=== PATIENT | male | born 1960 | race Caucasian/White ===

== ENCOUNTER 2021-07-09 11:31 | Emergency (ER) | payer BC ==
[~2021-07-09] VITALS: Ht 175.3 cm; Wt 99.8 kg
[2021-07-09] MEDS ORDERED: COZAAR25 MG PO (11:38)
== END 2021-07-09 14:23 ==
LOC: ER 11:31
DX: I21.29 ST elevation (STEMI) myocardial infarction involving other sites (principal); I10 Essential (primary) hypertension; E78.00 Pure hypercholesterolemia, unspecified; E11.9 Type 2 diabetes mellitus without complications; Z91.09 Other allergy status, other than to drugs and biological substances